=== PATIENT | male | born 1980 | race Caucasian/White ===

== ENCOUNTER 2017-01-11 14:08 | Inpatient (IN) | payer OTHER ==
[~2017-01-11] VITALS: Ht 162.6 cm; Wt 59.3 kg
[~2017-01-11 14:08] MED LIST: NAPR-260 PO; ONDA4TAB35 PO; PANT40TA3 PO
[2017-01-11] MEDS ORDERED: PANTOPRAZOLE 40 MG INJ IV STA (14:10)
[2017-01-11] MEDS ORDERED: ONDANSETRON 4 MG INJ IV STA (14:16)
[2017-01-11] MEDS ORDERED: morphine 4 MG/ML VIAL IV STA (14:29)
[2017-01-11] MEDS ORDERED: LORAZEPAM 2 MG INJ IV ONE (14:30)
[2017-01-11 14:51] LABS: ABNORMAL IP MESSAGE 1; BASOPHIL # 0.1 10^3/ul (0.0-0.1); BASOPHILS % 0.2 % (0.0-2.0); HEMATOCRIT 45.3 % (42.0-52.0); LYMPHOCYTES # 0.9 10^3/ul (0.8-2.9); MEAN CORPUSCULAR HEMOGLOBIN 31.3 pg (29.0-33.0); MEAN CORPUSCULAR HGB CONC 35.3 g/dl (32.0-37.0); MEAN CORPUSCULAR VOLUME 88.5 fl (82.0-101.0); MEAN PLATELET VOLUME 12.7 fl (7.4-10.4); MONOCYTE # 1.2 10^3/ul (0.3-0.9); MONOCYTES % 5.2 % (0.0-11.0); NEUTROPHIL # 21.3 10^3/ul (1.6-7.5); NEUTROPHILS % 89.7 % (39.0-77.0); PLATELET COUNT 329 10^3/UL (140-415); POSITIVE DIFF @See below; RED BLOOD COUNT 5.12 10^6/ul (4.70-6.10); RED CELL DISTRIBUTION WIDTH 13.2 % (11.5-14.5); WHITE BLOOD COUNT 23.7 10^3/ul (4.8-10.8)
[2017-01-11] MEDS ORDERED: PANT40TA4 PO (14:54)
[2017-01-11] MEDS ORDERED: QUET300T18 PO (14:55)
[2017-01-11] MEDS ORDERED: QUET25TA33 PO (14:55)
[2017-01-11] MEDS ORDERED: DULO60CA6 PO (14:57)
[2017-01-11] MEDS ORDERED: SOD CHLORIDE 0.9% 1,000 ML IV STA ×2 (15:06)
[2017-01-11 15:17] LABS: INR 0.93; PARTIAL THROMBOPLASTIN TIME 28.5 Sec (25.0-35.0); PROTIME 12.5 Sec (12.2-14.2)
[2017-01-11 15:27] LABS: ALBUMIN 5.1 g/dl (3.3-4.9); ALBUMIN/GLOBULIN RATIO 1.59; BILIRUBIN,INDIRECT 0.3 mg/dl (0-1.1); BILIRUBIN,TOTAL 0.3 mg/dl (0.2-1.3); CALCIUM 10.4 mg/dl (8.4-10.2); CREATININE 0.66 mg/dl (0.61-1.24); POTASSIUM 3.7 mmol/L (3.5-5.1); TOTAL PROTEIN 8.3 g/dl (6.1-8.1)
--- NOTE | 2017-01-11 15:28 | ERA ---
ER Documentation Chief Complaint Date/Time DATE: 01/11/17 TIME: 15:23 Chief Complaint VOMITING BLOOD SINCE THIS MORNING HPI 36-year-old male history of hiatal hernia, peptic ulcer disease, remote upper GI bleed who presents with vomiting that started this morning. He describes multiple and persistent episodes of hematemesis and dry heaving, no bilious emesis. He describes epigastric abdominal discomfort that is moderate. He states a normal bowel movement this morning and yesterday evening. No abdominal surgical history. He denies any alcohol abuse. No history of cirrhosis. ROS All systems reviewed and are negative except as per history of present illness. Medications Home Meds Reported Medications Duloxetine Hcl* (Cymbalta*) 60 Mg Capsule.dr, 60 MG PO QAM, CAP 01/11/17 Quetiapine Fumarate* (Quetiapine Fumarate*) 300 Mg Tablet, 300 MG PO HS, TAB 01/11/17 Quetiapine Fumarate* (Quetiapine Fumarate*) 25 Mg Tablet, 25 MG PO NEEDED Y for PRN, TAB 01/11/17 Pantoprazole* (Pantoprazole*) 40 Mg Tablet.dr, 40 MG PO AC BREAKFAST, TAB 01/11/17 Discontinued Scripts Naproxen* (Naprosyn*) 500 Mg Tablet, 500 MG PO BID Y for PAIN AND/OR INFLAMMATION, #30 TAB Prov:NESTOR HANKINS PA-C 03/24/16 Pantoprazole* (Protonix*) 40 Mg Tablet.dr, 40 MG PO DAILY, #10 TAB Prov:ABDIRIZAK RIVAS MD 07/15/15 Ondansetron Hcl* (Zofran* ODT) 4 mg -ODT Tab.disper, 4 MG PO Q6H Y for NAUSEA, # 10 TAB Prov:ABDIRIZAK RIVAS MD 07/15/15 Allergies Allergies: Coded Allergies: No Known Allergy (Unverified , 01/11/17) PMhx/Soc History of Surgery: No Anesthesia Reaction: No Hx Neurological Disorder: No Hx Respiratory Disorders: No Hx Cardiac Disorders: No Hx Psychiatric Problems: Yes (BI-POLAR, DEPRESSION) Hx Miscellaneous Medical Probl: Yes (HERNIA, STOMACH ULCERS) Hx Alcohol Use: No Hx Substance Use: Yes (MARIJUANA ) Hx Tobacco Use: Yes Smoking Status: Current every day smoker FmHx Family History: No diabetes Physical Exam Vitals Vital Signs Date Time Temp Pulse Resp B/P Pulse Ox O2 Delivery O2 Flow Rate FiO2 01/11/17 14:11 98.0 73 20 123/82 97 Physical Exam General: Uncomfortable, dry heaving, vomiting, diaphoretic Head: Normocephalic, atraumatic. Eyes: Pupils equally reactive, EOM intact ENT: Moist mucous membranes Neck: Supple, no lymphadenopathy Respiratory: Lungs clear bilaterally, no distress Cardiovascular: Slight tachycardia, no murmurs, rubs, or gallops Abdominal: Soft, mild diffuse tenderness without rebound or guarding, no peritonitis : Deferred MSK: No edema, no unilateral swelling, 5/5 strength Neurologic: Alert and oriented, moving all extremities, normal speech, no focal weakness, no cerebellar signs Skin: No rash Psych: Normal mood Result Diagram: 01/11/17 1435 01/11/17 1435 Results 24 hrs Laboratory Tests Test 01/11/17 14:35 White Blood Count 23.710^3/ul Red Blood Count 5.1210^6/ul Hemoglobin 16.0g/dl Hematocrit 45.3% Mean Corpuscular Volume 88.5fl Mean Corpuscular Hemoglobin 31.3pg Mean Corpuscular Hemoglobin Concent 35.3g/dl Red Cell Distribution Width 13.2% Platelet Count 42287^3/UL Mean Platelet Volume 12.7fl Neutrophils % 89.7% Lymphocytes % 4.0% Monocytes % 5.2% Eosinophils % 0.0% Basophils % 0.2% Nucleated Red Blood Cells % 0.0/100WBC Neutrophils # 21.310^3/ul Lymphocytes # 0.910^3/ul Monocytes # 1.210^3/ul Eosinophils # 0.010^3/ul Basophils # 0.110^3/ul Nucleated Red Blood Cells # 0.010^3/ul Prothrombin Time 12.5Sec Prothrombin Time Ratio 1.0 INR International Normalized Ratio 0.93 Activated Partial Thromboplast Time 28.5Sec Sodium Level 143mmol/L Potassium Level 3.7mmol/L Chloride Level 104mmol/L Carbon Dioxide Level 24mmol/L Anion Gap 19 Blood Urea Nitrogen 11mg/dl Creatinine 0.66mg/dl Glucose Level 135mg/dl Calcium Level 10.4mg/dl Total Bilirubin 0.3mg/dl Direct Bilirubin 0.00mg/dl Indirect Bilirubin 0.3mg/dl Aspartate Amino Transf (AST/SGOT) 44IU/L Alanine Aminotransferase (ALT/SGPT) 80IU/L Alkaline Phosphatase 103IU/L Total Protein 8.3g/dl Albumin 5.1g/dl Globulin 3.20g/dl Albumin/Globulin Ratio 1.59 Current Medications Medications (Trade) Dose Ordered Sig/Tricia Route PRN Reason Start Time Stop Time Status Last Admin Dose Admin Pantoprazole (Protonix Iv) 40 mg ONCE STAT IV 01/11/17 14:10 01/11/17 14:13 DC 01/11/17 14:36 Ondansetron HCl (Zofran Inj) 4 mg ONCE STAT IV 01/11/17 14:16 01/11/17 14:17 DC 01/11/17 14:36 Morphine Sulfate (morphine) 4 mg ONCE STAT IV 01/11/17 14:29 01/11/17 14:31 DC 01/11/17 14:39 Lorazepam 1 mg 1 mg ONCE ONCE IV 01/11/17 14:30 01/11/17 14:31 DC 01/11/17 14:39 Sodium Chloride 1,000 ml @ 1,000 mls/hr Q1H STAT IV 01/11/17 15:06 01/11/17 16:05 DC 01/11/17 15:11 Sodium Chloride (NS) 1,000 ml @ 1,000 mls/hr Q1H STAT IV 01/11/17 15:06 01/11/17 16:05 DC 01/11/17 16:41 Ondansetron HCl (Zofran Inj) 4 mg BRIDGE ORDER PRN IV NAUSEA AND/OR VOMITING 01/11/17 17:00 01/12/17 16:59 Acetaminophen (Tylenol Tab) 650 mg ER BRIDGE PRN PO MILD PAIN/FEVER 01/11/17 17:00 01/12/17 16:59 IV Flush (NS 3 ml) 3 ml PER PROTOCOL IV 01/11/17 17:00 Acetaminophen (Tylenol Tab) 650 mg Q6H PRN PO PAIN LEVEL 1-3 OR FEVER 01/11/17 17:00 Docusate Sodium (Colace) 100 mg Q12H PRN PO CONSTIPATION 01/11/17 17:00 Pantoprazole (Protonix Iv) 40 mg DAILY@06 IV 01/12/17 06:00 Procedures/MDM EKG, MONITORS, & DIAGNOSTIC IMAGING: EKG: I reviewed and interpreted a 12-lead EKG. Rhythm: Normal sinus rhythm Ectopy: None Intervals: No abnormalities ST segments: No elevations or depressions T waves: No contiguous inversions CT abdomen and pelvis: IMPRESSION: Evaluation of the abdominal viscera is limited without intravenous contrast. 1. No acute abdominal pathology. 2. Scattered colonic diverticuli without evidence of acute diverticulitis. RPTAT: PP LAB INTERPRETATION: Significant leukocytosis MEDICAL DECISION MAKING: The patient presents with intractable nausea and vomiting and hematemesis. Given his history of hiatal hernia with peptic ulcer disease this is concerning for acute upper GI hemorrhage. No evidence of cirrhosis or esophageal varices. The patient has significant leukocytosis prompting CT of the abdomen and pelvis however this is possibly related to demargination in the setting of persistent vomiting. However significant hiatal hernia burning could cause these symptoms. CT would be warranted. The patient will also benefit from inpatient hospitalization, proton pump inhibitor and GI consultation for likely endoscopy. Dr. Sellers was made aware. ER COURSE: The patient was given 2 L of saline, nausea medication, Ativan. The patient was given PPI. No indication for PPI drip as the risks outweigh the benefits. Patient is feeling much better. The patient CT is negative. He is stable for MedSur admission for further management of abdominal pain, likely upper GI bleed that is subacute I kept the patient and/or family informed of laboratory and diagnostic imaging results throughout the emergency room course. DISPOSITION PLAN: MedSurg admission CONSULTATION: Accepting care team and consultations: I discussed the current laboratory data, diagnostic imaging and emergency care provided. Admitting team: Dr. Sheldon Brawsell Admitting team indication: Insurance directed Consulting services: Gastroenterology Dr. Sellers Departure Diagnosis: Primary Impression: Hematemesis Qualified Code: K92.0 - Hematemesis with nausea Additional Impressions: Epigastric abdominal pain Leukocytosis Qualified Code: D72.829 - Leukocytosis, unspecified type Condition: Stable ERIK HARDY MD Jan 11, 2017 15:28
--- NOTE | 2017-01-11 16:17 | RADRPT ---
PROCEDURE: CT abdomen and pelvis without intravenous contrast. CLINICAL INDICATION: Abdominal pain, hematemesis, hernia TECHNIQUE: CT of the abdomen/pelvis was performed utilizing axial images with reconstructions in s agittal and coronal planes. The administered radiation dose is CTDI 5.28 mGy, DLP 302.83 mGy-cm. One or more of the following dose reduction techniques were used: Automated exposure control, Adjustmen t of the mA and/or kV according to patient size, or Use of iterative reconstruction technique. COMPARISON: There are no similar studies submitted for comparison. FINDINGS: Lung bases: The lung bases are clear, except for mild subsegmental atelectasis in the right middle l obe, lingula, and left lower lobe. .The heart is normal size without pericardial effusion. CT ABDOMEN: Evaluation of the abdominal viscera is limited without intravenous contrast. Gastrointestinal tract: There is no bowel obstruction.No abnormal colonic wall thickening is identif ied.There is no pneumoperitoneum. A few scattered colonic diverticuli are seen without evidence of a cute diverticulitis. A normal-appearing appendix is seen in the right lower quadrant. Liver: The liver is normal in size.There is no intrahepatic ductal dilatation. Gallbladder: The gallbladder is grossly unremarkable. Pancreas: The pancreas is grossly unremarkable. Spleen: The spleen is normal in size. Kidneys: The kidneys are normal in size and contour.No renal calculi identified.There is no evidence of hydronephrosis. Adrenal glands: The bilateral adrenal glands are unremarkable. Retroperitoneum: There is no retroperitoneal adenopathy.The aorta is normal in caliber. CT PELVIS: Pelvic organs: The prostate gland and seminal vesicles are unremarkable. Bladder: The bladder is unremarkable. There is no pelvic free fluid.No pelvic adenopathy is identified. Osseous structures: No destructive lytic or blastic osseous lesion is identified. IMPRESSION: Evaluation of the abdominal viscera is limited without intravenous contrast. 1. No acute abdominal pathology. 2. Scattered colonic diverticuli without evidence of acute diverticulitis. RPTAT: PP Physician Timothy Date Time Electronically viewed and signed by Physician Timothy on 01/11/2017 16:16 RC/
--- NOTE | 2017-01-11 16:59 | CONS ---
Date/Time of Note Date/Time of Note DATE: 01/11/17 TIME: 16:49 Assessment/Plan Assessment/Plan Additional Assessment/Plan Assessment Hematemesis bleeding peptic ulcer vs gastritis vs esophagitis Plan EGD tomorrow risks and benefit explained to patient and agreed with the planned procedure continue present management monitor Hemoglobin and hematocrit daily will transfuse per protocol further orders will depend on clinical course Consultation Date/Type/Reason Admit Date/Time Date of Consultation: Jan 11, 2017 Type of Consultation: Gastroenterology Reason for Consultation hematemesis Referring Provider: DARIEL HAMILTON MD Hx of Present Illness 36 year old male with past medical history of peptic ulcer disease presented in the emergency room because of hematemesis.Present condition apparently started 1 day prior to consult with vague abdominal pain with associated multiple bouts of hematemesis about 1/2 glass per bout ,denies any hematochezia,chest pain, shortness of breath nor shortness of breath.He denies any intake of alcohol .Emergency room course hemoglobin 16 ,wbc 23.7 ,ct abdomen/pelvis 1. No acute abdominal pathology. 2. Scattered colonic diverticuli without evidence of acute diverticulitis. Presently no eviddence of hematemesis but patient feels nauseated Constitutional: improved, no complaints Eyes: no complaints ENT: no complaints Respiratory: no complaints Cardiovascular: no complaints Gastrointestinal: blood, flatus, nausea, vomiting Genitourinary: no complaints Musculoskeletal: no complaints Skin: no complaints Neurologic: no complaints Endocrine: no complaints Lymphatic: no complaints Psychological: nl mood/affect, no complaints Immunologic: no complaints Past Medical History Medical History: peptic ulcer disease Past Surgical History Past Surgical Hx: endoscopy Family History Significant Family History: no pertinent family hx Social History Alcohol Use: rarely Smoking Status: Current every day smoker Exam/Review of Systems Vital Signs Vitals Vital Signs Date Time Temp Pulse Resp B/P Pulse Ox O2 Delivery O2 Flow Rate FiO2 01/11/17 14:11 98.0 73 20 123/82 97 Exam Constitutional: alert, oriented, well developed Psych: nl mood/affect, no complaints Head: atraumatic, normocephalic Eyes: EOMI, PERRL, nl conjunctiva, nl lids, nl sclera ENMT: nl external ears & nose, nl lips & teeth, nl nasal mucosa & septum Neck: non-tender, supple Respiratory: clear to auscultation, normal air movement Cardiovascular: nl pulses, regular rate and rhythm Gastrointestinal: nl liver, spleen, non-tender, soft Musculoskeletal: nl extremities to inspection, nl gait and stance Extremities: normal pulses Neurological: nl speech, nl strength Skin: nl turgor, No rash or lesions Lymph: nl lymph nodes Results Result Diagram: 01/11/17 1435 01/11/17 1435 Results 24 hrs Laboratory Tests Test 01/11/17 14:35 White Blood Count 23.7 #H Red Blood Count 5.12 Hemoglobin 16.0 Hematocrit 45.3 Mean Corpuscular Volume 88.5 Mean Corpuscular Hemoglobin 31.3 Mean Corpuscular Hemoglobin Concent 35.3 Red Cell Distribution Width 13.2 Platelet Count 329 Mean Platelet Volume 12.7 H Neutrophils % 89.7 H Lymphocytes % 4.0 L Monocytes % 5.2 Eosinophils % 0.0 Basophils % 0.2 Nucleated Red Blood Cells % 0.0 Neutrophils # 21.3 H Lymphocytes # 0.9 Monocytes # 1.2 H Eosinophils # 0.0 Basophils # 0.1 Nucleated Red Blood Cells # 0.0 Prothrombin Time 12.5 Prothrombin Time Ratio 1.0 INR International Normalized Ratio 0.93 Activated Partial Thromboplast Time 28.5 Sodium Level 143 Potassium Level 3.7 Chloride Level 104 Carbon Dioxide Level 24 Anion Gap 19 H Blood Urea Nitrogen 11 Creatinine 0.66 Glucose Level 135 Calcium Level 10.4 H Total Bilirubin 0.3 Direct Bilirubin 0.00 Indirect Bilirubin 0.3 Aspartate Amino Transf (AST/SGOT) 44 Alanine Aminotransferase (ALT/SGPT) 80 H Alkaline Phosphatase 103 Total Protein 8.3 H Albumin 5.1 H Globulin 3.20 Albumin/Globulin Ratio 1.59 Medications Medications Current Medications Acetaminophen (Tylenol Tab) 650 mg Q6H PRN PO PAIN LEVEL 1-3 OR FEVER; Start at 17:00; Status UNV Docusate Sodium (Colace) 100 mg Q12H PRN PO CONSTIPATION; Start 01/11/17 at 17: 00; Status UNV Pantoprazole (Protonix Iv) 40 mg DAILY@06 IV ; Start 01/12/17 at 06:00; Status UNV DEANA ONTIVEROS MD Jan 11, 2017 16:59
[2017-01-11] MEDS ORDERED: NACL 0.9% 3 ML SYG IV SCH (17:00)
[2017-01-11] MEDS ORDERED: ACETAMINOPHEN 325 MG TAB PO PRN (17:00)
[2017-01-11] MEDS ORDERED: DOCUSATE SODIUM 100 MG CAP PO PRN (17:00)
[2017-01-11] MEDS ORDERED: ONDANSETRON 4 MG INJ IV PRN (17:00)
[2017-01-11 17:24] VITALS: TEMP 99.5
--- NOTE | 2017-01-11 17:34 | QN ---
Documentation Comment [id number] ALISA GUERRERO MD Jan 11, 2017 17:34
[2017-01-11 20:14] VITALS: Ht 162.6 cm; Wt 59.3 kg
[2017-01-11 20:30] VITALS: PULSE 102
[2017-01-11] MEDS: QUETIAPINE 100 MG TAB PO SCH (21:00)
[2017-01-11 21:03] VITALS: BP 118/76; RESP 20
[2017-01-11] MEDS: DEXTROSE 5%-0.45% NACL 1,000 ML IV SCH (21:29)
[2017-01-11] MEDS: morphine 2 MG INJ IV PRN (22:50)
[2017-01-12] VITALS (12 sets, daily range): BP systolic 91–132; BP diastolic 61–84; PULSE 76–104; RESP 12–41
[2017-01-12] MEDS: morphine 2 MG INJ IV PRN ×4 (02:42→22:15)
--- NOTE | 2017-01-12 04:58 | HP ---
DATE OF ADMISSION: 01/11/2017 HISTORY OF PRESENT ILLNESS: This is a 36-year-old male with history of psychiatric disorder who presented with vomiting blood. Has history of GI bleed in the past, but used to have black stool. Now he is vomiting blood. Currently he is not vomiting. He was seen by Dr. Radhames Sellers, as per the patient's family member at the bedside. The patient's WBC is 23.7, hematocrit of 45.3, platelet count of 329; sodium 143, potassium 10.4; ALT 18, albumin 5.1. The patient had abdomen and pelvic CT scan done. It shows no acute abdominal pathology, scattered colonic diverticulitis, without evidence of acute diverticulitis. PAST MEDICAL HISTORY: Psychiatric disorder. ALLERGIES: NONE. MEDICATIONS: The patient at home is on Cymbalta, Protonix, Seroquel. FAMILY HISTORY: Diabetes, hypertension. REVIEW OF SYSTEMS: HEENT: Unremarkable. RESPIRATORY: Unremarkable. CARDIOVASCULAR: Unremarkable. GASTROINTESTINAL: Unremarkable except as mentioned above NEUROLOGIC: Unremarkable. PHYSICAL EXAMINATION: GENERAL APPEARANCE: The patient is awake and alert. VITAL SIGNS: Stable. HEENT: Head is atraumatic, normocephalic. Pupils are equal and react to light. NECK: Supple. There is no JVD. LUNGS: Clear. CARDIOVASCULAR: S1, S2 normal. ABDOMEN: Soft, nontender. Bowel sounds present. No palpable mass. EXTREMITIES: Reveal no cyanosis, clubbing or edema. NEUROLOGIC: The patient is awake, alert. No focal deficits. LABORATORY DATA: WBC 23.7, hematocrit 45.3. Sodium 143, potassium 3.7, calcium 10.4. IMPRESSION: 1. Gastrointestinal bleed. 2. Rule out peptic ulcer disease. 3. Psychiatric disorder. PLAN: Keep him n.p.o. IV fluids. PPI. GI consultation. . Orders were done. Dictated By: Sheldon Medrano MD /[email or web address]/david /Document#: [id number] MICAH
[2017-01-12] MEDS: ONDANSETRON 4 MG INJ IV PRN ×2 (05:33→17:40)
[2017-01-12] MEDS ORDERED: PANTOPRAZOLE 40 MG INJ IV SCH (06:00)
[2017-01-12 07:40] LABS: BASOPHILS % 0.1 % (0.0-2.0); EOSINOPHILS % 0.2 % (0.0-7.0); HEMATOCRIT 42.6 % (42.0-52.0); HEMOGLOBIN 14.6 g/dl (14.0-18.0); LYMPHOCYTES # 1.9 10^3/ul (0.8-2.9); LYMPHOCYTES % 13.4 % (15.0-51.0); MEAN CORPUSCULAR HEMOGLOBIN 31.3 pg (29.0-33.0); MEAN CORPUSCULAR HGB CONC 34.3 g/dl (32.0-37.0); MEAN CORPUSCULAR VOLUME 91.2 fl (82.0-101.0); MEAN PLATELET VOLUME 12.1 fl (7.4-10.4); MONOCYTE # 1.1 10^3/ul (0.3-0.9); MONOCYTES % 7.7 % (0.0-11.0); NEUTROPHIL # 11.2 10^3/ul (1.6-7.5); NEUTROPHILS % 78.3 % (39.0-77.0); PLATELET COUNT 254 10^3/UL (140-415); RED BLOOD COUNT 4.67 10^6/ul (4.70-6.10); RED CELL DISTRIBUTION WIDTH 13.7 % (11.5-14.5); WHITE BLOOD COUNT 14.3 10^3/ul (4.8-10.8)
[2017-01-12 07:56] LABS: ALBUMIN 4.2 g/dl (3.3-4.9); ALBUMIN/GLOBULIN RATIO 1.44; BILIRUBIN,INDIRECT 0.2 mg/dl (0-1.1); BILIRUBIN,TOTAL 0.2 mg/dl (0.2-1.3); CALCIUM 9.4 mg/dl (8.4-10.2); CREATININE 0.58 mg/dl (0.61-1.24); POTASSIUM 4.2 mmol/L (3.5-5.1); TOTAL PROTEIN 7.1 g/dl (6.1-8.1)
[2017-01-12] MEDS: DULOXETINE 30 MG CAP DR PO SCH (08:33)
[2017-01-12] MEDS: DEXTROSE 5%-0.45% NACL 1,000 ML IV SCH ×2 (11:08→23:40)
[2017-01-12] MEDS: QUETIAPINE 100 MG TAB PO SCH (17:39)
[2017-01-12] MEDS ORDERED: PROPOFOL 20 ML ONE (18:03)
[2017-01-12] MEDS: PANTOPRAZOLE 40 MG INJ IV SCH (20:13)
--- NOTE | 2017-01-13 00:05 | PN ---
Date/Time of Note Date/Time of Note DATE: 01/13/17 TIME: 00:04 Assessment/Plan VTE Prophylaxis VTE Prophylaxis Intervention: other Lines/Catheters IV Catheter Type (from Nrs): Peripheral IV Assessment/Plan Chief Complaint/Hosp Course IMPRESSION: 1. Gastrointestinal bleed. 2. Rule out peptic ulcer disease. 3. Psychiatric disorder. PLAN PER GI LABS Problems: Subjective 24 Hr Interval Summary Subjective hx not possible: other (NO ACTIVE GI BLEED) Exam/Review of Systems Vital Signs Vitals Vital Signs Date Time Temp Pulse Resp B/P Pulse Ox O2 Delivery O2 Flow Rate FiO2 01/12/17 19:48 98.1 96 17 111/61 97 01/12/17 18:29 2.0 01/12/17 16:36 Room Air Intake and Output 01/12/17 01/12/17 01/13/17 15:00 23:00 07:00 Intake Total 950 ml Output Total 1400 ml Balance -450 ml Exam Neck: supple Respiratory: clear to auscultation Cardiovascular: regular rate and rhythm Gastrointestinal: bowel sounds, soft Extremities: normal pulses Results Result Diagram: 01/12/17 0641 01/12/17 0500 Results 24 hrs Laboratory Tests Test 01/12/17 05:00 01/12/17 06:41 Sodium Level 145 H Potassium Level 4.2 Chloride Level 104 Carbon Dioxide Level 26 Anion Gap 19 H Blood Urea Nitrogen 7 Creatinine 0.58 L Glucose Level 104 Calcium Level 9.4 Total Bilirubin 0.2 Direct Bilirubin 0.00 Indirect Bilirubin 0.2 Aspartate Amino Transf (AST/SGOT) 33 Alanine Aminotransferase (ALT/SGPT) 63 Alkaline Phosphatase 73 Total Protein 7.1 # Albumin 4.2 Globulin 2.90 Albumin/Globulin Ratio 1.44 White Blood Count 14.3 #H Red Blood Count 4.67 L Hemoglobin 14.6 Hematocrit 42.6 Mean Corpuscular Volume 91.2 Mean Corpuscular Hemoglobin 31.3 Mean Corpuscular Hemoglobin Concent 34.3 Red Cell Distribution Width 13.7 Platelet Count 254 # Mean Platelet Volume 12.1 H Neutrophils % 78.3 H Lymphocytes % 13.4 L Monocytes % 7.7 Eosinophils % 0.2 Basophils % 0.1 Nucleated Red Blood Cells % 0.0 Neutrophils # 11.2 H Lymphocytes # 1.9 Monocytes # 1.1 H Eosinophils # 0.0 Basophils # 0.0 Nucleated Red Blood Cells # 0.0 Medications Medications Current Medications Acetaminophen (Tylenol Tab) 650 mg Q6H PRN PO PAIN LEVEL 1-3 OR FEVER; Start at 17:00 Docusate Sodium 100 mg 100 mg Q12H PRN PO CONSTIPATION; Start 01/11/17 at 17:00 Dextrose/Sodium Chloride (D5-1/2ns) 1,000 ml @ 75 mls/hr [id number] IV Last administered on 01/12/17 11:08; Admin Dose 75 MLS/HR; Start 01/11/17 at 21:00 Morphine Sulfate (morphine) 2 mg Q4H PRN IV PAIN Last administered on 22:15; Admin Dose 2 MG; Start 01/11/17 at 21:00 Duloxetine HCl (Cymbalta) 60 mg QAM PO Last administered on 01/12/17 08:33; Admin Dose 60 MG; Start 01/12/17 at 09:00 Quetiapine Fumarate (Seroquel) 25 mg BID PRN PO PRN; Start 01/11/17 at 21:00 Quetiapine Fumarate (Seroquel) 300 mg HS PO Last administered on 01/12/17 17: 39; Admin Dose 300 MG; Start 01/11/17 at 21:00 Ondansetron HCl (Zofran Inj) 4 mg Q6H PRN IV NAUSEA AND/OR VOMITING Last administered on 01/12/17 17:40; Admin Dose 4 MG; Start 01/11/17 at 21:30 Pantoprazole (Protonix Iv) 40 mg BID IV Last administered on 01/12/17 20:13; Admin Dose 40 MG; Start 01/12/17 at 21:00 ALISA GUERRERO MD Jan 13, 2017 00:05
[2017-01-13 02:00] VITALS: BP 104/60; RESP 18
[2017-01-13] MEDS: morphine 2 MG INJ IV PRN ×4 (05:59→20:41)
[2017-01-13] MEDS: DEXTROSE 5%-0.45% NACL 1,000 ML IV SCH ×2 (06:00→23:04)
[2017-01-13] MEDS: DULOXETINE 30 MG CAP DR PO SCH (08:31)
[2017-01-13] MEDS: ACETAMINOPHEN 325 MG TAB PO PRN (08:32)
[2017-01-13] MEDS: PANTOPRAZOLE 40 MG INJ IV SCH ×2 (08:32→20:41)
[2017-01-13 08:46] VITALS: BP 118/64; RESP 20
[2017-01-13 14:58] VITALS: BP 105/62; RESP 18
--- NOTE | 2017-01-13 16:11 | PN ---
Date/Time of Note Date/Time of Note DATE: 01/13/17 TIME: 16:04 Assessment/Plan VTE Prophylaxis VTE Prophylaxis Intervention: SCD's Lines/Catheters IV Catheter Type (from Nrs): Peripheral IV Urinary Cath still in place: Yes Reason Cath still needed: urinary retention Assessment/Plan Assessment/Plan Assessment Hematemesis EGD severe ulcerated esophagitis hiatal hernia erosive gastritis 6 mm antral ulcer * Biopsy A-Gastric biopsy: -- Antral mucosa showing minimal plasma cell infiltration. -- No Helicobacter pylori is identified in Giemsa stain (positive control concurrently reviewed). -- No evidence of intestinal metaplasia, dysplasia or malignancy. Plan pantoprazole 40 mg BID X6 weeks continue present management case discussed with Dr Sellers further orders will depend on clinical course Subjective 24 Hr Interval Summary Free Text/Dictation * course reviewed with RN * Patient seen and examined * EGD severe ulcerated esophagitis hiatal hernia erosive gastritis 6 mm antral ulcer * Biopsy A-Gastric biopsy: -- Antral mucosa showing minimal plasma cell infiltration. -- No Helicobacter pylori is identified in Giemsa stain (positive control concurrently reviewed). -- No evidence of intestinal metaplasia, dysplasia or malignancy. B-Esophageal biopsy: -- Squamous mucosa showing mild acute esophagitis. -- No fungal organisms are identified in Alcian Blue/PAS stain (positive control concurrently reviewed). -- No evidence of dysplasia or malignancy. Exam/Review of Systems Vital Signs Vitals Vital Signs Date Time Temp Pulse Resp B/P Pulse Ox O2 Delivery O2 Flow Rate FiO2 01/13/17 14:58 98.1 53 18 105/62 98 01/12/17 18:29 2.0 01/12/17 16:36 Room Air Intake and Output 01/12/17 01/12/17 01/13/17 15:00 23:00 07:00 Intake Total 950 ml 1600 ml Output Total 1400 ml 1300 ml Balance -450 ml 300 ml Exam Constitutional: alert, oriented Neck: non-tender, supple Respiratory: clear to auscultation, normal air movement Cardiovascular: nl pulses, regular rate and rhythm Gastrointestinal: non-tender, soft Musculoskeletal: nl extremities to inspection, nl gait and stance Extremities: normal pulses Neurological: nl speech, nl strength Skin: nl turgor, No rash or lesions Results Result Diagram: 01/12/17 0641 01/12/17 0500 Medications Medications Current Medications Acetaminophen (Tylenol Tab) 650 mg Q6H PRN PO PAIN LEVEL 1-3 OR FEVER Last administered on 01/13/17 08:32; Admin Dose 650 MG; Start 01/11/17 at 17:00 Docusate Sodium 100 mg 100 mg Q12H PRN PO CONSTIPATION; Start 01/11/17 at 17:00 Dextrose/Sodium Chloride (D5-1/2ns) 1,000 ml @ 75 mls/hr [id number] IV Last administered on 01/13/17 06:00; Admin Dose 75 MLS/HR; Start 01/11/17 at 21:00 Morphine Sulfate (morphine) 2 mg Q4H PRN IV PAIN Last administered on 15:57; Admin Dose 2 MG; Start 01/11/17 at 21:00 Duloxetine HCl (Cymbalta) 60 mg QAM PO Last administered on 01/13/17 08:31; Admin Dose 60 MG; Start 01/12/17 at 09:00 Quetiapine Fumarate (Seroquel) 25 mg BID PRN PO PRN; Start 01/11/17 at 21:00 Quetiapine Fumarate (Seroquel) 300 mg HS PO Last administered on 01/12/17 17: 39; Admin Dose 300 MG; Start 01/11/17 at 21:00 Ondansetron HCl (Zofran Inj) 4 mg Q6H PRN IV NAUSEA AND/OR VOMITING Last administered on 01/12/17 17:40; Admin Dose 4 MG; Start 01/11/17 at 21:30 Pantoprazole (Protonix Iv) 40 mg BID IV Last administered on 01/13/17 08:32; Admin Dose 40 MG; Start 01/12/17 at 21:00 Sucralfate (Carafate) 1 gm TID PO ; Start 01/13/17 at 21:00 OLLIE HAYES NP Jan 13, 2017 16:11
[2017-01-13 19:38] VITALS: BP 120/75; RESP 20
--- NOTE | 2017-01-13 20:05 | PN ---
Date/Time of Note Date/Time of Note DATE: 01/13/17 TIME: 20:04 Assessment/Plan VTE Prophylaxis VTE Prophylaxis Intervention: other Lines/Catheters IV Catheter Type (from Nrsg): Peripheral IV Urinary Cath still in place: Yes Reason Cath still needed: other (indicate) Assessment/Plan Chief Complaint/Hosp Course IMPRESSION: 1. Gastrointestinal bleed. 2. Rule out peptic ulcer disease. 3. Psychiatric disorder. 4 epigastric pain PLAN PER GI LABS carafate Problems: Subjective 24 Hr Interval Summary Cardiovascular: no complaints Gastrointestinal: nausea, other (abd pain+) Exam/Review of Systems Vital Signs Vitals Vital Signs Date Time Temp Pulse Resp B/P Pulse Ox O2 Delivery O2 Flow Rate FiO2 01/13/17 14:58 98.1 53 18 105/62 98 01/12/17 18:29 2.0 01/12/17 16:36 Room Air Intake and Output 01/12/17 01/12/17 01/13/17 15:00 23:00 07:00 Intake Total 950 ml 1600 ml Output Total 1400 ml 1300 ml Balance -450 ml 300 ml Exam Respiratory: clear to auscultation Cardiovascular: regular rate and rhythm Gastrointestinal: soft Musculoskeletal: nl extremities to inspection Extremities: normal pulses Results Result Diagram: 01/12/17 0641 01/12/17 0500 Medications Medications Current Medications Acetaminophen (Tylenol Tab) 650 mg Q6H PRN PO PAIN LEVEL 1-3 OR FEVER Last administered on 01/13/17 08:32; Admin Dose 650 MG; Start 01/11/17 at 17:00 Docusate Sodium 100 mg 100 mg Q12H PRN PO CONSTIPATION; Start 01/11/17 at 17:00 Dextrose/Sodium Chloride (D5-1/2ns) 1,000 ml @ 75 mls/hr [id number] IV Last administered on 01/13/17 06:00; Admin Dose 75 MLS/HR; Start 01/11/17 at 21:00 Morphine Sulfate (morphine) 2 mg Q4H PRN IV PAIN Last administered on 15:57; Admin Dose 2 MG; Start 01/11/17 at 21:00 Duloxetine HCl (Cymbalta) 60 mg QAM PO Last administered on 01/13/17 08:31; Admin Dose 60 MG; Start 01/12/17 at 09:00 Quetiapine Fumarate (Seroquel) 25 mg BID PRN PO PRN; Start 01/11/17 at 21:00 Quetiapine Fumarate (Seroquel) 300 mg HS PO Last administered on 01/12/17 17: 39; Admin Dose 300 MG; Start 01/11/17 at 21:00 Ondansetron HCl (Zofran Inj) 4 mg Q6H PRN IV NAUSEA AND/OR VOMITING Last administered on 01/12/17 17:40; Admin Dose 4 MG; Start 01/11/17 at 21:30 Pantoprazole (Protonix Iv) 40 mg BID IV Last administered on 01/13/17 08:32; Admin Dose 40 MG; Start 01/12/17 at 21:00 Sucralfate (Carafate) 1 gm TID PO ; Start 01/13/17 at 21:00 ALISA GUERRERO MD Jan 13, 2017 20:05
[2017-01-13] MEDS: QUETIAPINE 100 MG TAB PO SCH (20:41)
[2017-01-13] MEDS: SUCRALFATE 1 GM TAB PO SCH (20:41)
[2017-01-14 02:10] VITALS: BP 118/64; RESP 18
[2017-01-14 05:41] LABS: BASOPHILS % 0.4 % (0.0-2.0); EOSINOPHILS # 0.1 10^3/ul (0.0-0.5); EOSINOPHILS % 2.1 % (0.0-7.0); HEMATOCRIT 42.7 % (42.0-52.0); HEMOGLOBIN 14.1 g/dl (14.0-18.0); LYMPHOCYTES # 2.4 10^3/ul (0.8-2.9); LYMPHOCYTES % 42.3 % (15.0-51.0); MEAN CORPUSCULAR HEMOGLOBIN 30.5 pg (29.0-33.0); MEAN CORPUSCULAR VOLUME 92.4 fl (82.0-101.0); MEAN PLATELET VOLUME 12.6 fl (7.4-10.4); MONOCYTE # 0.6 10^3/ul (0.3-0.9); MONOCYTES % 11.1 % (0.0-11.0); NEUTROPHIL # 2.5 10^3/ul (1.6-7.5); NEUTROPHILS % 43.7 % (39.0-77.0); PLATELET COUNT 234 10^3/UL (140-415); RED BLOOD COUNT 4.62 10^6/ul (4.70-6.10); RED CELL DISTRIBUTION WIDTH 13.8 % (11.5-14.5); WHITE BLOOD COUNT 5.7 10^3/ul (4.8-10.8)
[2017-01-14 06:25] LABS: ALBUMIN 3.8 g/dl (3.3-4.9); ALBUMIN/GLOBULIN RATIO 1.4; BILIRUBIN,INDIRECT 0.4 mg/dl (0-1.1); BILIRUBIN,TOTAL 0.4 mg/dl (0.2-1.3); CALCIUM 9.3 mg/dl (8.4-10.2); CREATININE 0.64 mg/dl (0.61-1.24); POTASSIUM 3.5 mmol/L (3.5-5.1); TOTAL PROTEIN 6.5 g/dl (6.1-8.1)
[2017-01-14 07:30] VITALS: BP 110/61; RESP 16
[2017-01-14] MEDS: SUCRALFATE 1 GM TAB PO SCH ×3 (08:49→20:54)
[2017-01-14] MEDS: DULOXETINE 30 MG CAP DR PO SCH (08:50)
[2017-01-14] MEDS: morphine 2 MG INJ IV PRN ×2 (08:50→15:20)
[2017-01-14] MEDS: PANTOPRAZOLE 40 MG INJ IV SCH ×2 (08:50→20:53)
[2017-01-14] MEDS: ONDANSETRON 4 MG INJ IV PRN (08:56)
[2017-01-14] MEDS ORDERED: BISACODYL 10 MG SUPP PR ONE (09:30)
--- NOTE | 2017-01-14 09:33 | PN ---
Date/Time of Note Date/Time of Note DATE: 01/14/17 TIME: 09:31 Assessment/Plan VTE Prophylaxis VTE Prophylaxis Intervention: ambulation Lines/Catheters IV C[facility] Type (from [facility] Peripheral IV Urinary Cath still in place: No Assessment/Plan Chief Complaint/Hosp Course 1. Gastrointestinal bleed. 2. Rule out peptic ulcer disease. 3. Psychiatric disorder. 4 epigastric pain 5. Nausea 6. Hypernatremia Problems: Assessment/Plan 1. Change IV fluids to D5W 60 ml /hour 2. Dulcolax prn Subjective 24 Hr Interval Summary Eyes: no complaints ENT: no complaints Cardiovascular: no complaints Gastrointestinal: constipation, pain Genitourinary: no complaints Exam/Review of Systems Vital Signs Vitals Vital Signs Date Time Temp Pulse Resp B/P Pulse Ox O2 Delivery O2 Flow Rate FiO2 01/14/17 07:30 97.7 67 16 110/61 98 01/12/17 18:29 2.0 01/12/17 16:36 Room Air Intake and Output 01/13/17 01/13/17 01/14/17 15:00 23:00 07:00 Intake Total 1685 ml 1200 ml Output Total 1100 ml 1200 ml Balance 585 ml 0 ml Exam Constitutional: alert, oriented Neck: supple Respiratory: clear to auscultation Cardiovascular: regular rate and rhythm Gastrointestinal: rebound or guarding Results Result Diagram: 01/14/17 0434 01/14/17 0434 Results 24 hrs Laboratory Tests Test 01/14/17 04:34 White Blood Count 5.7 # Red Blood Count 4.62 L Hemoglobin 14.1 Hematocrit 42.7 Mean Corpuscular Volume 92.4 Mean Corpuscular Hemoglobin 30.5 Mean Corpuscular Hemoglobin Concent 33.0 Red Cell Distribution Width 13.8 Platelet Count 234 Mean Platelet Volume 12.6 H Neutrophils % 43.7 Lymphocytes % 42.3 Monocytes % 11.1 H Eosinophils % 2.1 Basophils % 0.4 Nucleated Red Blood Cells % 0.0 Neutrophils # 2.5 Lymphocytes # 2.4 Monocytes # 0.6 Eosinophils # 0.1 Basophils # 0.0 Nucleated Red Blood Cells # 0.0 Sodium Level 145 H Potassium Level 3.5 Chloride Level 103 Carbon Dioxide Level 30 Anion Gap 16 Blood Urea Nitrogen 6 L Creatinine 0.64 Glucose Level 102 Calcium Level 9.3 Total Bilirubin 0.4 Direct Bilirubin 0.00 Indirect Bilirubin 0.4 Aspartate Amino Transf (AST/SGOT) 21 Alanine Aminotransferase (ALT/SGPT) 59 Alkaline Phosphatase 59 Total Protein 6.5 Albumin 3.8 Globulin 2.70 Albumin/Globulin Ratio 1.40 Medications Medications Current Medications Acetaminophen (Tylenol Tab) 650 mg Q6H PRN PO PAIN LEVEL 1-3 OR FEVER Last administered on 01/13/17 08:32; Admin Dose 650 MG; Start 01/11/17 at 17:00 Docusate Sodium 100 mg 100 mg Q12H PRN PO CONSTIPATION; Start 01/11/17 at 17:00 Dextrose/Sodium Chloride (D5-1/2ns) 1,000 ml @ 75 mls/hr [id number] IV Last administered on 01/13/17 23:04; Admin Dose 75 MLS/HR; Start 01/11/17 at 21:00 Morphine Sulfate (morphine) 2 mg Q4H PRN IV PAIN Last administered on 08:50; Admin Dose 2 MG; Start 01/11/17 at 21:00 Duloxetine HCl (Cymbalta) 60 mg QAM PO Last administered on 01/14/17 08:50; Admin Dose 60 MG; Start 01/12/17 at 09:00 Quetiapine Fumarate (Seroquel) 25 mg BID PRN PO PRN; Start 01/11/17 at 21:00 Quetiapine Fumarate (Seroquel) 300 mg HS PO Last administered on 01/13/17 20: 41; Admin Dose 300 MG; Start 01/11/17 at 21:00 Ondansetron HCl (Zofran Inj) 4 mg Q6H PRN IV NAUSEA AND/OR VOMITING Last administered on 01/14/17 08:56; Admin Dose 4 MG; Start 01/11/17 at 21:30 Pantoprazole (Protonix Iv) 40 mg BID IV Last administered on 01/14/17 08:50; Admin Dose 40 MG; Start 01/12/17 at 21:00 Sucralfate (Carafate) 1 gm TID PO Last administered on 01/14/17 08:49; Admin Dose 1 GM; Start 01/13/17 at 21:00 BHAKTI JARA Jan 14, 2017 09:33
[2017-01-14] MEDS: QUETIAPINE 25 MG TAB PO PRN (09:57)
[2017-01-14] MEDS: DEXTROSE 5% 1,000 ML IV SCH (10:15)
[2017-01-14 14:08] VITALS: BP 125/74; RESP 18
--- NOTE | 2017-01-14 14:12 | PN ---
Date/Time of Note Date/Time of Note DATE: 01/14/17 TIME: 14:09 Assessment/Plan VTE Prophylaxis VTE Prophylaxis Intervention: ambulation Lines/Catheters IV [facility] Peripheral IV Urinary Cath still in place: No Assessment/Plan Assessment/Plan Assessment Hematemesis EGD severe ulcerated esophagitis hiatal hernia erosive gastritis 6 mm antral ulcer * Biopsy A-Gastric biopsy: -- Antral mucosa showing minimal plasma cell infiltration. -- No Helicobacter pylori is identified in Giemsa stain (positive control concurrently reviewed). -- No evidence of intestinal metaplasia, dysplasia or malignancy. Plan pantoprazole 40 mg BID X6 weeks clear liquids continue present management case discussed with Dr Sellers further orders will depend on clinical course Subjective 24 Hr Interval Summary Free Text/Dictation * Course reviewed with RN * patient seen and examined * Still with mild dysphagia Exam/Review of Systems Vital Signs Vitals Vital Signs Date Time Temp Pulse Resp B/P Pulse Ox O2 Delivery O2 Flow Rate FiO2 01/14/17 07:30 97.7 67 16 110/61 98 01/12/17 18:29 2.0 01/12/17 16:36 Room Air Intake and Output 01/13/17 01/13/17 01/14/17 15:00 23:00 07:00 Intake Total 1685 ml 1200 ml Output Total 1100 ml 1200 ml Balance 585 ml 0 ml Exam Constitutional: alert, oriented Head: normocephalic Neck: non-tender, supple Respiratory: clear to auscultation, normal air movement Cardiovascular: nl pulses, regular rate and rhythm Gastrointestinal: non-tender, soft Musculoskeletal: nl extremities to inspection, nl gait and stance Neurological: nl speech, nl strength Skin: nl turgor, No rash or lesions Lymph: nl lymph nodes Results Result Diagram: 01/14/17 0434 01/14/17 0434 Results 24 hrs Laboratory Tests Test 01/14/17 04:34 01/14/17 12:30 White Blood Count 5.7 # Red Blood Count 4.62 L Hemoglobin 14.1 Hematocrit 42.7 Mean Corpuscular Volume 92.4 Mean Corpuscular Hemoglobin 30.5 Mean Corpuscular Hemoglobin Concent 33.0 Red Cell Distribution Width 13.8 Platelet Count 234 Mean Platelet Volume 12.6 H Neutrophils % 43.7 Lymphocytes % 42.3 Monocytes % 11.1 H Eosinophils % 2.1 Basophils % 0.4 Nucleated Red Blood Cells % 0.0 Neutrophils # 2.5 Lymphocytes # 2.4 Monocytes # 0.6 Eosinophils # 0.1 Basophils # 0.0 Nucleated Red Blood Cells # 0.0 Sodium Level 145 H Potassium Level 3.5 Chloride Level 103 Carbon Dioxide Level 30 Anion Gap 16 Blood Urea Nitrogen 6 L Creatinine 0.64 Glucose Level 102 Calcium Level 9.3 Total Bilirubin 0.4 Direct Bilirubin 0.00 Indirect Bilirubin 0.4 Aspartate Amino Transf (AST/SGOT) 21 Alanine Aminotransferase (ALT/SGPT) 59 Alkaline Phosphatase 59 Total Protein 6.5 Albumin 3.8 Globulin 2.70 Albumin/Globulin Ratio 1.40 Stool Occult Blood NEGATIVE Medications Medications Current Medications Acetaminophen (Tylenol Tab) 650 mg Q6H PRN PO PAIN LEVEL 1-3 OR FEVER Last administered on 01/13/17 08:32; Admin Dose 650 MG; Start 01/11/17 at 17:00 Docusate Sodium (Colace) 100 mg Q12H PRN PO CONSTIPATION; Start 01/11/17 at 17: 00 Morphine Sulfate (morphine) 2 mg Q4H PRN IV PAIN Last administered on 08:50; Admin Dose 2 MG; Start 01/11/17 at 21:00 Quetiapine Fumarate (Seroquel) 25 mg BID PRN PO PRN Last administered on 09:57; Admin Dose 25 MG; Start 01/11/17 at 21:00 Quetiapine Fumarate (Seroquel) 300 mg HS PO Last administered on 01/13/17 20: 41; Admin Dose 300 MG; Start 01/11/17 at 21:00 Ondansetron HCl (Zofran Inj) 4 mg Q6H PRN IV NAUSEA AND/OR VOMITING Last administered on 01/14/17 08:56; Admin Dose 4 MG; Start 01/11/17 at 21:30 Sucralfate 1 gm 1 gm TID PO Last administered on 01/14/17 13:08; Admin Dose 1 GM; Start 01/13/17 at 21:00 Dextrose (D5W) 1,000 ml @ 60 mls/hr [id number] IV Last administered on 01/14/17 10:15; Admin Dose 60 MLS/HR; Start 01/14/17 at 09:30 Duloxetine HCl (Cymbalta) 60 mg QAM@0730 PO ; Start 01/15/17 at 07:30 Pantoprazole (Protonix Iv) 40 mg BID@0730,21 IV ; Start 01/14/17 at 21:00 OLLIE HAYES NP Jan 14, 2017 14:12
[2017-01-14] MEDS ORDERED: ALPRAZOLAM 0.25 MG TAB PO PRN (15:30)
[2017-01-14 20:32] VITALS: BP 110/64; RESP 18
[2017-01-14] MEDS: QUETIAPINE 100 MG TAB PO SCH (20:54)
[2017-01-15 03:39] VITALS: BP 101/57; RESP 19
[2017-01-15 05:19] LABS: BASOPHILS % 0.3 % (0.0-2.0); EOSINOPHILS # 0.1 10^3/ul (0.0-0.5); EOSINOPHILS % 1.5 % (0.0-7.0); HEMATOCRIT 43.8 % (42.0-52.0); HEMOGLOBIN 15.2 g/dl (14.0-18.0); LYMPHOCYTES # 2.7 10^3/ul (0.8-2.9); LYMPHOCYTES % 30.6 % (15.0-51.0); MEAN CORPUSCULAR HEMOGLOBIN 31.9 pg (29.0-33.0); MEAN CORPUSCULAR HGB CONC 34.7 g/dl (32.0-37.0); MEAN PLATELET VOLUME 12.3 fl (7.4-10.4); MONOCYTE # 0.7 10^3/ul (0.3-0.9); MONOCYTES % 8.1 % (0.0-11.0); NEUTROPHIL # 5.2 10^3/ul (1.6-7.5); NEUTROPHILS % 58.9 % (39.0-77.0); PLATELET COUNT 247 10^3/UL (140-415); RED BLOOD COUNT 4.76 10^6/ul (4.70-6.10); RED CELL DISTRIBUTION WIDTH 13.3 % (11.5-14.5); WHITE BLOOD COUNT 8.8 10^3/ul (4.8-10.8)
[2017-01-15] MEDS: PANTOPRAZOLE 40 MG INJ IV SCH (05:41)
[2017-01-15] MEDS: DEXTROSE 5% 1,000 ML IV SCH ×2 (05:42→18:15)
[2017-01-15 05:53] LABS: CALCIUM 9.6 mg/dl (8.4-10.2); CREATININE 0.7 mg/dl (0.61-1.24)
[2017-01-15] MEDS ORDERED: DULOXETINE 30 MG CAP DR PO SCH (07:30)
[2017-01-15] MEDS: ACETAMINOPHEN 325 MG TAB PO PRN ×2 (07:58→14:23)
[2017-01-15] MEDS: QUETIAPINE 25 MG TAB PO PRN (08:05)
[2017-01-15] MEDS: SUCRALFATE 1 GM TAB PO SCH ×2 (08:05→12:09)
[2017-01-15 08:06] VITALS: BP 112/63; RESP 16
--- NOTE | 2017-01-15 09:12 | PN ---
Date/Time of Note Date/Time of Note DATE: 01/15/17 TIME: 09:10 Assessment/Plan VTE Prophylaxis VTE Prophylaxis Intervention: ambulation Lines/Catheters IV C[facility] Type (from [facility]): Peripheral IV Urinary Cath still in place: No Assessment/Plan Chief Complaint/Hosp Course 1. Gastrointestinal bleed. 2. Peptic ulcer disease. 3. Psychiatric disorder. 4 epigastric pain 5. Nausea 6. Hypernatremia 7. s/p EGD 8. hiatal hernia 9. erosive gastritis Problems: Assessment/Plan 1. PPI for 6 weeks 2. Continue current regime Subjective 24 Hr Interval Summary Constitutional: improved, no complaints Gastrointestinal: pain Exam/Review of Systems Vital Signs Vitals Vital Signs Date Time Temp Pulse Resp B/P Pulse Ox O2 Delivery O2 Flow Rate FiO2 01/15/17 08:06 98.1 58 16 112/63 98 01/12/17 18:29 2.0 01/12/17 16:36 Room Air Intake and Output 01/14/17 01/14/17 01/15/17 15:00 23:00 07:00 Intake Total 300 ml 1140 ml 1040 ml Output Total 500 ml Balance 300 ml 1140 ml 540 ml Exam Constitutional: alert, oriented Respiratory: clear to auscultation Cardiovascular: regular rate and rhythm Gastrointestinal: soft Results Result Diagram: 01/15/17 0431 01/15/17 0431 Results 24 hrs Laboratory Tests Test 01/14/17 12:30 01/15/17 04:31 Stool Occult Blood NEGATIVE White Blood Count 8.8 # Red Blood Count 4.76 Hemoglobin 15.2 Hematocrit 43.8 Mean Corpuscular Volume 92.0 Mean Corpuscular Hemoglobin 31.9 Mean Corpuscular Hemoglobin Concent 34.7 Red Cell Distribution Width 13.3 Platelet Count 247 Mean Platelet Volume 12.3 H Neutrophils % 58.9 Lymphocytes % 30.6 Monocytes % 8.1 Eosinophils % 1.5 Basophils % 0.3 Nucleated Red Blood Cells % 0.0 Neutrophils # 5.2 Lymphocytes # 2.7 Monocytes # 0.7 Eosinophils # 0.1 Basophils # 0.0 Nucleated Red Blood Cells # 0.0 Sodium Level 146 H Potassium Level 4.0 Chloride Level 102 Carbon Dioxide Level 31 Anion Gap 17 H Blood Urea Nitrogen 6 L Creatinine 0.70 Glucose Level 106 Calcium Level 9.6 Medications Medications Current Medications Acetaminophen (Tylenol Tab) 650 mg Q6H PRN PO PAIN LEVEL 1-3 OR FEVER Last administered on 01/15/17 07:58; Admin Dose 650 MG; Start 01/11/17 at 17:00 Docusate Sodium (Colace) 100 mg Q12H PRN PO CONSTIPATION; Start 01/11/17 at 17: 00 Morphine Sulfate (morphine) 2 mg Q4H PRN IV PAIN Last administered on 15:20; Admin Dose 2 MG; Start 01/11/17 at 21:00 Quetiapine Fumarate (Seroquel) 25 mg BID PRN PO PRN Last administered on 08:05; Admin Dose 25 MG; Start 01/11/17 at 21:00 Quetiapine Fumarate (Seroquel) 300 mg HS PO Last administered on 01/14/17 20: 54; Admin Dose 300 MG; Start 01/11/17 at 21:00 Ondansetron HCl (Zofran Inj) 4 mg Q6H PRN IV NAUSEA AND/OR VOMITING Last administered on 01/14/17 08:56; Admin Dose 4 MG; Start 01/11/17 at 21:30 Sucralfate 1 gm 1 gm TID PO Last administered on 01/15/17 08:05; Admin Dose 1 GM; Start 01/13/17 at 21:00 Dextrose (D5W) 1,000 ml @ 60 mls/hr [id number] IV Last administered on 01/15/17 05:42; Admin Dose 60 MLS/HR; Start 01/14/17 at 09:30 Duloxetine HCl (Cymbalta) 60 mg QAM@0730 PO Last administered on 01/15/17 07: 57; Admin Dose 60 MG; Start 01/15/17 at 07:30 Pantoprazole (Protonix Iv) 40 mg BID@0730,21 IV Last administered on 01/15/17 05:41; Admin Dose 40 MG; Start 01/14/17 at 21:00 Alprazolam (Xanax) 0.25 mg BID PRN PO ANXIETY Last administered on 01/14/17 16 :03; Admin Dose 0.25 MG; Start 01/14/17 at 15:30 BHAKTI JARA Jan 15, 2017 09:12
[2017-01-15] MEDS: morphine 2 MG INJ IV PRN ×2 (12:11→16:20)
--- NOTE | 2017-01-15 12:15 | PN ---
Date/Time of Note Date/Time of Note DATE: 01/15/17 TIME: 12:09 Assessment/Plan VTE Prophylaxis VTE Prophylaxis Intervention: SCD's Lines/Catheters IV Catheter Type (from [facility]): Peripheral IV Urinary Cath still in place: No Assessment/Plan Assessment/Plan Assessment; * Severe ulcerated esophagitis * hiatal hernia * erosive gastritis * 6 mm antral ulcer * Path A-Gastric biopsy: -- Antral mucosa showing minimal plasma cell infiltration. -- No Helicobacter pylori is identified in Giemsa stain (positive control concurrently reviewed). -- No evidence of intestinal metaplasia, dysplasia or malignancy. Plan: Protonix 40 mg twice daily Add Carafate 1 g 4 times daily liquid form Add Reglan 10 mg 4 times daily If patient continues symptomatic or fails treatment in 8 weeks consider referral for Carmelita fundoplication If able to tolerate diet and symptoms improved safe for outpatient care Subjective 24 Hr Interval Summary Free Text/Dictation Course reviewed with nursing staff Patient upset that the lack of improvement and 1 day I explained in detail the nature of his problem He states he has had this problem for 3 occasions I explained that the treatment will take 8 weeks to show healing at which time endoscopy should be repeated The alternative would be to refer for surgical evaluation It is clear the patient's expectations are unrealistic Exam/Review of Systems Vital Signs Vitals Vital Signs Date Time Temp Pulse Resp B/P Pulse Ox O2 Delivery O2 Flow Rate FiO2 01/15/17 08:06 98.1 58 16 112/63 98 01/12/17 18:29 2.0 01/12/17 16:36 Room Air Intake and Output 01/14/17 01/14/17 01/15/17 15:00 23:00 07:00 Intake Total 300 ml 1140 ml 1040 ml Output Total 500 ml Balance 300 ml 1140 ml 540 ml Exam Constitutional: alert, oriented, well developed Psych: nl mood/affect, no complaints Head: atraumatic, normocephalic Eyes: EOMI, PERRL, nl conjunctiva, nl lids, nl sclera ENMT: nl external ears & nose, nl lips & teeth, nl nasal mucosa & septum Neck: non-tender, supple Respiratory: clear to auscultation, normal air movement Cardiovascular: nl pulses, regular rate and rhythm Gastrointestinal: nl liver, spleen, soft, tender (Epigastric, mild) Musculoskeletal: nl extremities to inspection, nl gait and stance Extremities: normal pulses Neurological: SECTION [employer] II-XII intact, nl mental status, nl speech, nl strength Skin: nl turgor, No rash or lesions Lymph: nl lymph nodes Results Result Diagram: 01/15/1743001/15/17 0431 Results 24 hrs Laboratory Tests Test 01/14/17 12:30 01/15/17 04:31 Stool Occult Blood NEGATIVE White Blood Count 8.8 # Red Blood Count 4.76 Hemoglobin 15.2 Hematocrit 43.8 Mean Corpuscular Volume 92.0 Mean Corpuscular Hemoglobin 31.9 Mean Corpuscular Hemoglobin Concent 34.7 Red Cell Distribution Width 13.3 Platelet Count 247 Mean Platelet Volume 12.3 H Neutrophils % 58.9 Lymphocytes % 30.6 Monocytes % 8.1 Eosinophils % 1.5 Basophils % 0.3 Nucleated Red Blood Cells % 0.0 Neutrophils # 5.2 Lymphocytes # 2.7 Monocytes # 0.7 Eosinophils # 0.1 Basophils # 0.0 Nucleated Red Blood Cells # 0.0 Sodium Level 146 H Potassium Level 4.0 Chloride Level 102 Carbon Dioxide Level 31 Anion Gap 17 H Blood Urea Nitrogen 6 L Creatinine 0.70 Glucose Level 106 Calcium Level 9.6 Medications Medications Current Medications Acetaminophen (Tylenol Tab) 650 mg Q6H PRN PO PAIN LEVEL 1-3 OR FEVER Last administered on 01/15/17 07:58; Admin Dose 650 MG; Start 01/11/17 at 17:00 Docusate Sodium (Colace) 100 mg Q12H PRN PO CONSTIPATION; Start 01/11/17 at 17: 00 Morphine Sulfate (morphine) 2 mg Q4H PRN IV PAIN Last administered on 15:20; Admin Dose 2 MG; Start 01/11/17 at 21:00 Quetiapine Fumarate (Seroquel) 25 mg BID PRN PO PRN Last administered on 08:05; Admin Dose 25 MG; Start 01/11/17 at 21:00 Quetiapine Fumarate (Seroquel) 300 mg HS PO Last administered on 01/14/17 20: 54; Admin Dose 300 MG; Start 01/11/17 at 21:00 Ondansetron HCl (Zofran Inj) 4 mg Q6H PRN IV NAUSEA AND/OR VOMITING Last administered on 01/14/17 08:56; Admin Dose 4 MG; Start 01/11/17 at 21:30 Sucralfate 1 gm 1 gm TID PO Last administered on 01/15/17 08:05; Admin Dose 1 GM; Start 01/13/17 at 21:00 Dextrose (D5W) 1,000 ml @ 60 mls/hr [id number] IV Last administered on 01/15/17 05:42; Admin Dose 60 MLS/HR; Start 01/14/17 at 09:30 Duloxetine HCl (Cymbalta) 60 mg QAM@0730 PO Last administered on 01/15/17 07: 57; Admin Dose 60 MG; Start 01/15/17 at 07:30 Pantoprazole (Protonix Iv) 40 mg BID@0730,21 IV Last administered on 01/15/17 05:41; Admin Dose 40 MG; Start 01/14/17 at 21:00 Alprazolam (Xanax) 0.25 mg BID PRN PO ANXIETY Last administered on 01/14/17 16 :03; Admin Dose 0.25 MG; Start 01/14/17 at 15:30 DEANA ONTIVEROS MD Jan 15, 2017 12:15
[2017-01-15 14:37] VITALS: BP 104/69; RESP 16
--- NOTE | 2017-01-15 17:16 | PDOCDIS ---
Discharge Instructions CONDITION Patient Condition: Stable HOME CARE INSTRUCTIONS: Special Diet: SOFT DIET ACTIVITY: Activity Restrictions: Slowly Increase Activity FOLLOW UP/APPOINTMENTS Follow-up Plan see own pcp [address] olivarez 1wk ALISA GUERRERO MD Jan 15, 2017 17:16
[2017-01-15] MEDS ORDERED: PANT40TA4 PO (17:18)
[2017-01-15] MEDS ORDERED: QUET25TA33 PO (17:18)
[2017-01-15] MEDS ORDERED: ALPR0.254 PO (17:18)
[2017-01-15] MEDS ORDERED: SUCR1TAB27 PO (17:18)
--- NOTE | 2017-01-16 21:19 | DS ---
Date/Time of Note Date/Time of Note DATE: 01/16/17 TIME: 21:15 Discharge Summary Admission/Discharge Info Admit Date/Time Jan 11, 2017 at 19:01 Discharge Date/Time Jan 15, 2017 at 20:00 Discharge Diagnosis GI bleed, hiatal hernia Patient Condition: Serious Consults Dr Elizondo Procedures EGD Hx of Present Illness pt was admitted with abdominal pain, hs depression Hospital Course unremarkable Home Meds Active Scripts Sucralfate (Carafate) 1 Gm Tablet, 1 GM PO TID for 28 Days, TAB Prov:ALISA GUERRERO MD 01/15/17 Alprazolam* (Alprazolam*) 0.25 Mg Tablet, 0.25 MG PO BID Y for ANXIETY for 14 Days, TAB Prov:ALISA GUERRERO MD 01/15/17 Quetiapine Fumarate* (Quetiapine Fumarate*) 25 Mg Tablet, 25 MG PO BID Y for PRN for 10 Days, TAB Prov:ALISA GUERRERO MD 01/15/17 Pantoprazole* (Pantoprazole*) 40 Mg Tablet., 40 MG PO BID for 30 Days, TAB Prov:ALISA GUERRERO MD 01/15/17 Reported Medications Duloxetine Hcl* (Cymbalta*) 60 Mg Capsule.dr, 60 MG PO QAM, CAP 01/11/17 Quetiapine Fumarate* (Quetiapine Fumarate*) 300 Mg Tablet, 300 MG PO HS, TAB 01/11/17 Discontinued Reported Medications Quetiapine Fumarate* (Quetiapine Fumarate*) 25 Mg Tablet, 25 MG PO NEEDED Y for PRN, TAB 01/11/17 Discontinued Scripts Naproxen* (Naprosyn*) 500 Mg Tablet, 500 MG PO BID Y for PAIN AND/OR INFLAMMATION, #30 TAB Prov:NESTOR HANKINS PA-C 03/24/16 Pantoprazole* (Protonix*) 40 Mg Tablet.dr, 40 MG PO DAILY, #10 TAB Prov:ABDIRIZAK RIVAS MD 07/15/15 Ondansetron Hcl* (Zofran* ODT) 4 mg -ODT Tab.disper, 4 MG PO Q6H Y for NAUSEA, # 10 TAB Prov:ABDIRIZAK RIVAS MD 07/15/15 Primary Care Provider MD ESTEFANI Lutz ANNA Jan 16, 2017 21:19
--- NOTE | 2017-01-18 08:00 | GILP ---
DATE OF PROCEDURE: 01/12/2017 PROCEDURE PERFORMED: Esophagogastroduodenoscopy with biopsies. INDICATION FOR PROCEDURE: The patient is being evaluated for GI bleeding. ANESTHESIA: Monitored anesthesia care by Anesthesiologist. INSTRUMENTS USED: Sterile scope. TECHNIQUE: After informed consent, with the patient/relatives understanding the procedure, its indications, potential risks and complications, including but not limited to: allergic reaction, bleeding, perforation or infection, and after all pertinent questions were answered to the patients satisfaction, the patient/relatives signed witnessed informed consent. Following this, premedication was administered slowly IV push under careful cardiovascular and respiratory monitoring with pulse oximetry, automatic blood pressure and press operator instant print shop. Once the sedative effect was achieved the patient was place in the left lateral decubitus, the panendoscope was introduced and advanced under visual control. Careful examination of the upper gastrointestinal tract, both on insertion as well as withdrawal of the instrument disclosed the following findings: ESOPHAGUS: The esophagus shows significant erythema and edema and erosion/ulceration of the distal half of the esophagus. Biopsies were obtained in a limited fashion. A small hiatal hernia is present. STOMACH: Upon entrance to the stomach air was insufflated, the gastric taylor distended normally. There is significant erythema and edema and superficial erosion of the mucosa. A 6-mm antral gastric ulceration is also present. PYLORUS: The pylorus appears patent and within normal limits, with no evidence of gastric outlet obstruction. DUODENUM: The duodenal mucosa was carefully examined in the duodenal bulb as well as the second portion of the duodenum and appears unremarkable with no evidence of duodenitis, ulcer or neoplasm. The instrument was then withdrawn, the patient tolerated the procedure well and was transfer out of the endoscopy suite awake, and in good condition to continue recovery under observation. IMPRESSION: 1. Severe ulcerated distal esophagitis. 2. Hiatal hernia. 3. Erosive gastritis, rule out H. pylori infection. Biopsies are obtained. 4. A 6-mm antral gastric ulceration, benign in appearance, and no recent bleeding. RECOMMENDATIONS: The patient will be treated with PPI b.i.d. Pathology will be reviewed as soon as available. Abstinence will be critical to the patient's well being. Dictated By: Radhames Sellers MD /[email or web address]/[email or web address] /Document#: [id number]
== END 2017-01-15 20:00 | disposition home or self-care (01) | DRG 378 ==
LOC: E/R 14:08 → PP2 19:01
PROVIDERS: ADMIT Internal Medicine Nephrology; ATTEND Internal Medicine Nephrology
PROC: 0DB58ZX Excision of Esophagus, Via Natural or Artificial Opening Endoscopic, Diagnostic (ICD-10-PCS; 2017-01-12)
PROC: 0DB68ZX Excision of Stomach, Via Natural or Artificial Opening Endoscopic, Diagnostic (ICD-10-PCS; principal; 2017-01-12 20:00)
DX: K92.2 Gastrointestinal hemorrhage, unspecified (principal); K22.10 Ulcer of esophagus without bleeding; E87.0 Hyperosmolality and hypernatremia; K44.9 Diaphragmatic hernia without obstruction or gangrene; D72.829 Elevated white blood cell count, unspecified; K29.00 Acute gastritis without bleeding; K25.9 Gastric ulcer, unspecified as acute or chronic, without hemorrhage or perforation; K27.9 Peptic ulcer, site unspecified, unspecified as acute or chronic, without hemorrhage or perforation; F99 Mental disorder, not otherwise specified; K92.0 Hematemesis
CPT/HCPCS: 36415; 74176; 80048; 80053; 82270; 85025; 85610; 85730; 86850; 86900; 86901; 87081; 88305; 88312; 88313; 93005; 96361; 96374; 96375; C9113; J2060; J2270; J2405; J7030; J7042; J7070